=== PATIENT | male | born 1980 | race Caucasian/White ===

== ENCOUNTER → 2020-07-25 10:29 | Outpatient (ROUT) | payer OTHER, SELFPAY ==
[2020-07-26 09:03] LABS: COVID19 Sendout Not Detected (Not Detect)
== END ==
PROVIDERS: Visit Provider Family Medicine
DX: Z11.59 Encounter for screening for other viral diseases (principal)
CPT/HCPCS: 87635

== ENCOUNTER → 2020-08-03 10:17 | Outpatient (CLI) | payer OTHER, MEDICAID, SELFPAY ==
[2020-08-03 11:29] LABS: COVID19 -Nasal RAPID Negative (Negative)
== END ==
PROVIDERS: PCP Family Medicine; Referring Provider Family Medicine; Visit Provider Family Medicine
DX: Z11.59 Encounter for screening for other viral diseases (principal)
CPT/HCPCS: 87635

== ENCOUNTER → 2020-10-15 12:47 | Outpatient (ROUT) | payer OTHER, MEDICAID, SELFPAY ==
[2020-10-15 13:17] LABS: COVID19 -Nasal RAPID Negative (Negative)
== END ==
PROVIDERS: PCP Family Medicine; Visit Provider Family Medicine
DX: Z20.828 Contact with and (suspected) exposure to other viral communicable diseases (principal)
CPT/HCPCS: 87635

== ENCOUNTER → 2020-10-25 10:44 | Outpatient (CLI) | payer OTHER, SELFPAY ==
--- NOTE | 2020-10-25 | DI.RAD.S_ITS ---
PROCEDURE: XR HAND LT 2V INDICATIONS: LT HAND METAL FB DORSAM TECHNIQUE: 2 views of the hand(s) acquired. COMPARISON: None. FINDINGS: Bones: No fractures or dislocations. Carpal bones are normally aligned. No suspicious bony lesions. Soft tissues: No suspicious soft tissue calcifications. Linear metallic density is seen within soft tissue situated between distal shaft of 2nd and 3rd metacarpal bones. IMPRESSION: Foreign body within soft tissue between 2nd and 3rd metacarpal shafts. No fracture or dislocation. Dictated by: Howard Medellin M.D. on 10/25/2020 at 11:12 Approved by: Howard Medellin M.D. on 10/25/2020 at 11:13
== END ==
PROVIDERS: PCP Family Medicine; Referring Provider Family Medicine; Visit Provider Family Medicine
DX: M79.5 Residual foreign body in soft tissue (principal)
CPT/HCPCS: 73120